=== PATIENT | female | born 1955 | race Caucasian/White ===

== ENCOUNTER 2017-11-20 15:50 | Emergency (ER) | payer MEDICAID, OTHER ==
[~2017-11-20] VITALS: Ht 165.1 cm; Wt 65.8 kg
[~2017-11-20 15:50] MED LIST: ALPR1TAB2 PO; DEXL60CA3 PO; FENT1PAT5 TD; HYDR-3980 PO; LEVO50TA PO; OXYC30TA2 PO; TIZA4CAP PO; TRAM50TA2 PO; VENL75CA56 PO
[2017-11-20] MEDS ORDERED: oxyCODONE/APAP (5/325 MG) 1 UDTAB TABLET PO ONE (17:00)
[2017-11-20] MEDS ORDERED: ONDANSETRON 4 MG TAB.RAPDIS SL ONE (17:00)
[2017-11-20] MEDS ORDERED: oxyCODONE/APAP (5/325 MG) 1 UDTAB TABLET ONE (17:05)
[2017-11-20] MEDS ORDERED: ONDANSETRON 4 MG TAB.RAPDIS ONE (17:06)
[2017-11-20] MEDS ORDERED: KETOROLAC TROMETHAMINE INJ 30 MG/ML VIAL ONE (17:13)
[2017-11-20 17:25] VITALS: BP 116/70
[2017-11-20] MEDS ORDERED: KETOROLAC TROMETHAMINE INJ 60 MG/2 ML VIAL IM ONE (17:30)
== END 2017-11-20 17:26 | disposition home or self-care (01) ==
LOC: ER 15:52
DX: G89.4 Chronic pain syndrome (principal); E03.9 Hypothyroidism, unspecified; F32.9 Major depressive disorder, single episode, unspecified; K21.9 Gastro-esophageal reflux disease without esophagitis; M48.00 Spinal stenosis, site unspecified; G43.909 Migraine, unspecified, not intractable, without status migrainosus; M79.7 Fibromyalgia; R56.9 Unspecified convulsions; Z88.8 Allergy status to other drugs, medicaments and biological substances; Z88.0 Allergy status to penicillin
CPT/HCPCS: A4606; J1885; Q0162; Z7610

== ENCOUNTER 2018-01-03 11:54 | Emergency (ER) | payer MEDICAID ==
[~2018-01-03] VITALS: Ht 170.2 cm; Wt 65.8 kg
--- NOTE | 2018-01-03 12:05 | NUR ---
AAOX3, CAME TO ER C/O MIGRAINE x 8 DAYS. NAUSEA, ABDOMINAL DISCOMFORT, SCIATICA PAIN x "FOREVER". SKIN IS WARM AND DRY. AWAITING MD FOR EVAL.
--- NOTE | 2018-01-03 12:05 | NUR ---
Note josiah in EDM - 01/03/18 at 1220 by ELO AAOX3, CAME TO ER C/O MIGRAINE x 8 DAYS. NAUSEA, ABDOMINAL DISCOMFORTY. SCIATICA PAIN x "FOREVER". SKIN IS WARM AND DRY. AWAITING MD FOR EVAL.
[2018-01-03] MEDS ORDERED: KETOROLAC TROMETHAMINE INJ 30 MG/ML VIAL IV ONE (12:30)
[2018-01-03] MEDS ORDERED: diphenhydrAMINE HCL 50 MG/ML VIAL IV ONE (12:30)
[2018-01-03] MEDS ORDERED: PROCHLORPERAZINE EDISYLATE 10 MG/2 ML VIAL IV ONE (12:30)
[2018-01-03] MEDS ORDERED: IV NS 0.9% 1,000 ML BAG IV ONE (12:30)
[2018-01-03] MEDS ORDERED: diphenhydrAMINE HCL 50 MG/ML VIAL ONE (12:34)
[2018-01-03] MEDS ORDERED: KETOROLAC TROMETHAMINE INJ 30 MG/ML VIAL ONE (12:34)
[2018-01-03] MEDS ORDERED: PROCHLORPERAZINE EDISYLATE 10 MG/2 ML VIAL ONE (12:34)
--- NOTE | 2018-01-03 13:30 | NUR ---
Patient is resting comfortably in bed with eyes closed. Easily aroused. VSS
--- NOTE | 2018-01-03 14:07 | NUR ---
IV removed. Catheter intact and site benign. Pressure and 4x4 applied to site. No bleeding noted.Patient discharged to home in stable condition. Written and verbal after care instructions given. Patient verbalizes understanding of instruction.
[2018-01-03 14:09] VITALS: BP 118/72
== END 2018-01-03 14:11 | disposition home or self-care (01) ==
LOC: ER 11:58
DX: G43.909 Migraine, unspecified, not intractable, without status migrainosus (principal); K21.9 Gastro-esophageal reflux disease without esophagitis; M48.00 Spinal stenosis, site unspecified; G89.29 Other chronic pain; E03.9 Hypothyroidism, unspecified; Z88.0 Allergy status to penicillin; Z88.8 Allergy status to other drugs, medicaments and biological substances
CPT/HCPCS: 96361; 96374; 96375; 99284; A4606; J0780; J1200; J1885; J7030; Z7610